=== PATIENT | male | born 1935 | race Caucasian/White ===

== ENCOUNTER 2017-09-01 02:55 | Inpatient (IN) | payer OTHER, BC ==
[~2017-09-01] VITALS: Ht 172.7 cm; Wt 67.7 kg
[2017-09-01 03:33] LABS: BASOPHIL (%) 0.3 % (0-1); EOSINOPHIL (%) 1.7 % (0-5); EOSINOPHIL COUNT 0.2 K/uL (0-0.3); HEMATOCRIT 41.4 % (38.0-50.0); HEMOGLOBIN 14.1 G/DL (12.5-16.6); IMMATURE GRANULOCYTE (%) 0.6 % (0.0-0.7); LYMPHOCYTE (%) 11.4 % (15-42); LYMPHOCYTE COUNT 1.4 K/uL (1.0-2.8); MCH 30.1 PG (29.0-34.0); MCHC 34.1 G/DL (30.0-36.0); MCV 88.3 FL (86-99); MONOCYTE (%) 14.7 % (3-12); MONOCYTE COUNT 1.8 K/uL (0-0.8); NEUTROPHIL (%) 71.3 % (45-76); NEUTROPHIL COUNT 8.6 K/uL (1.8-6.4); PLATELET COUNT 334 K/uL (156-360); RBC DIS.WIDTH-CV 13.4 % (11.8-14.6); RBC DIS.WIDTH-SD 43.6 % (39-53); RED BLOOD COUNT 4.69 M/uL (4.00-5.50); WHITE BLOOD COUNT 12.1 K/uL (4.1-10.2)
[2017-09-01 03:42] LABS: INTER. NORMALIZED RATIO 1.2
[2017-09-01 03:45] LABS: PTT 28.1 SEC (25-37)
[2017-09-01 03:46] LABS: CHLORIDE 104 mEq/L (99-109)
[2017-09-01 03:47] LABS: POTASSIUM 4.4 mEq/L (3.7-5.4); SODIUM 136 mEq/L (136-147)
[2017-09-01 03:48] LABS: GLUCOSE 120 mg/dL (70-99)
[2017-09-01 03:52] LABS: CREATININE 0.9 mg/dL (0.6-1.3); GFR ESTIMATE (CALCULATED) > 59 mL/min/ (58.99-99999)
[2017-09-01 03:53] LABS: UREA NITROGEN (BUN) 17 mg/dL (9-23)
[2017-09-01 03:55] LABS: CREATINE KINASE 51 IU/L (1-294)
[2017-09-01 03:56] LABS: TROP-I INTERPRETATION NEGATIVE; TROPONIN-I < 0.01 ng/mL (0.0-0.30)
[2017-09-01 05:16] LABS: HDL CHOLESTEROL 31 MG/DL (Desirable>=40); LDL CHOLESTEROL 85 mg/dL (Desirable<100); NON-HDL CHOLESTEROL 102 mg/dL (Desirable<160); TOTAL CHOLESTEROL 133 mg/dL (Desirable<200); TRIGLYCERIDES 84 MG/DL (Normal: <150)
[2017-09-01 08:27] VITALS: BP 124/94
[2017-09-01 10:38] LABS: HEMOGLOBIN A1c (GLYCOHEMOGLOB) 6.4 % (Below 5.7)
[2017-09-01] MEDS ORDERED: PRAMIPEXOLE D0.25 MG PO (11:11)
[2017-09-01] MEDS ORDERED: ATARAX,VISTARIL25 MG PO (11:13)
[2017-09-01] MEDS ORDERED: ADVIL200 MG PO (11:18)
[2017-09-01] MEDS ORDERED: OMEGA-3 FLAXS1000 MG PO (11:20)
[2017-09-01] MEDS ORDERED: PROSTATE HEALT1 EAC1 PO (11:22)
[2017-09-01 11:47] VITALS: BP 126/67
[2017-09-01 16:34] VITALS: BP 134/67
[2017-09-01 20:18] VITALS: BP 119/66
[2017-09-02] VITALS (7 sets, daily range): BP systolic 122–168; BP diastolic 62–75
[2017-09-03 03:33] VITALS: BP 146/76
[2017-09-03] MEDS ORDERED: DUONEB 2.5-0.5 M3 ML AEROSOL (07:40)
[2017-09-03] MEDS ORDERED: ASPIRIN EC325 MG PO (07:41)
[2017-09-03] MEDS ORDERED: PREDNISONE10 MG PO (07:42)
[2017-09-03 08:21] VITALS: BP 132/66
[2017-09-03] MEDS ORDERED: LIPITOR40 MG PO (09:07)
[2017-09-03] MEDS ORDERED: OSELTAMIVIR PHO30 MG PO (09:08)
[2017-09-03] MEDS ORDERED: MIRAPEX0.125 MG PO ×2 (14:40→14:41)
[2017-09-03] MEDS ORDERED: HEPARIN SO5000 UNIT4 SC (14:42)
[2017-09-03] MEDS ORDERED: PRAVACHOL40 MG PO (14:42)
[2017-09-03] MEDS ORDERED: TYLENOL REGULA325 MG PO (14:43)
== END 2017-09-03 11:48 | disposition home or self-care (01) | DRG 65 ==
LOC: EME → EDBD 02:55 → EDOF 04:25 → 5SOUTH 04:25 → CANRESERV 04:27 → ENRESERV 04:27 → 4SOUTH 07:17 → ENRESERV 09-02 05:21 → 5SOUTH 09-02 07:01
PROVIDERS: Emergency Medicine; Hospitalist; Physician Assistant
DX: I63.511 Cerebral infarction due to unspecified occlusion or stenosis of right middle cerebral artery (principal); G81.91 Hemiplegia, unspecified affecting right dominant side; J10.1 Influenza due to other identified influenza virus with other respiratory manifestations; J44.9 Chronic obstructive pulmonary disease, unspecified; I10 Essential (primary) hypertension; I65.22 Occlusion and stenosis of left carotid artery; G25.81 Restless legs syndrome; M47.812 Spondylosis without myelopathy or radiculopathy, cervical region; R09.02 Hypoxemia; J98.11 Atelectasis; G89.29 Other chronic pain; R73.03 Prediabetes; Z72.0 Tobacco use; R29.703 NIHSS score 3; W19.XXXA Unspecified fall, initial encounter; Z86.73 Personal history of transient ischemic attack (TIA), and cerebral infarction without residual deficits
CPT/HCPCS: 70450; 70496; 70498; 70551; 71045; 80047; 80048; 80061; 82550; 82948; 83036; 84484; 85025; 85610; 85730; 87502; 93005; 93306; 94640; 94640 76; 94760; 94799; 97530 GO; 99281; 99285; J1644; J2920

== ENCOUNTER 2017-09-03 06:45 | Inpatient (IN) | payer OTHER, BC ==
[~2017-09-03] VITALS: Ht 175.3 cm; Wt 67.9 kg
[~2017-09-03 06:45] MED LIST: ADVIL200 MG PO; ATARAX,VISTARIL25 MG PO; OMEGA-3 FLAXS1000 MG PO; PRAMIPEXOLE D0.25 MG PO; PROSTATE HEALT1 EAC1 PO
[2017-09-03] MEDS ORDERED: DUONEB 2.5-0.5 M3 ML AEROSOL (07:40)
[2017-09-03] MEDS ORDERED: ASPIRIN EC325 MG PO (07:41)
[2017-09-03] MEDS ORDERED: PREDNISONE10 MG PO (07:42)
[2017-09-03] MEDS ORDERED: LIPITOR40 MG PO (09:07)
[2017-09-03] MEDS ORDERED: OSELTAMIVIR PHO30 MG PO (09:08)
[2017-09-03 12:00] VITALS: BP 161/78
[2017-09-03] MEDS ORDERED: MIRAPEX0.125 MG PO ×2 (14:40→14:41)
[2017-09-03] MEDS ORDERED: HEPARIN SO5000 UNIT4 SC (14:42)
[2017-09-03] MEDS ORDERED: PRAVACHOL40 MG PO (14:42)
[2017-09-03] MEDS ORDERED: TYLENOL REGULA325 MG PO (14:43)
[2017-09-03 15:05] VITALS: BP 129/61; BP 131/59
[2017-09-04 00:05] VITALS: BP 133/89
[2017-09-04 06:11] VITALS: BP 132/74
[2017-09-04 08:04] LABS: HEMATOCRIT 42.1 % (38.0-50.0); HEMOGLOBIN 14.1 G/DL (12.5-16.6); MCH 30.1 PG (29.0-34.0); MCHC 33.5 G/DL (30.0-36.0); MCV 89.8 FL (86-99); PLATELET COUNT 341 K/uL (156-360); RBC DIS.WIDTH-CV 13.5 % (11.8-14.6); RBC DIS.WIDTH-SD 44.1 % (39-53); RED BLOOD COUNT 4.69 M/uL (4.00-5.50)
[2017-09-04 08:31] LABS: ALBUMIN 3.2 G/DL (3.2-4.8); ALKALINE PHOSPHATASE 58 IU/L (3-129); ALT (GPT) 24 IU/L (3-49); AST (GOT) 20 IU/L (2-34); CHLORIDE 104 MEQ/L (99-109); CREATININE 0.8 MG/DL (0.6-1.3); GFR ESTIMATE (CALCULATED) > 59 mL/min/ (58.99-99999); GLUCOSE 81 mg/dL (70-99); POTASSIUM 4.6 MEQ/L (3.7-5.4); SODIUM 140 MEQ/L (136-147); TOTAL BILIRUBIN 0.4 MG/DL (0.0-1.0); TOTAL PROTEIN 5.5 G/DL (6.4-8.3); UREA NITROGEN (BUN) 23 mg/dL (9-23)
[2017-09-04 15:09] VITALS: BP 157/67
[2017-09-05 04:57] VITALS: BP 158/76
[2017-09-05 15:18] VITALS: BP 156/88
[2017-09-06 05:50] VITALS: BP 127/62
[2017-09-06 15:00] VITALS: BP 130/62
[2017-09-06 16:29] VITALS: BP 130/62
[2017-09-07 05:27] VITALS: BP 180/82
[2017-09-07 15:00] VITALS: BP 130/80
[2017-09-08 05:31] VITALS: BP 122/58
[2017-09-08 15:23] VITALS: BP 115/72
[2017-09-08] MEDS ORDERED: STIOLTO RESPIMAT4 GM IH (16:42)
[2017-09-08] MEDS ORDERED: LIPITOR40 MG PO (16:42)
[2017-09-08] MEDS ORDERED: PRAMIPEXOLE D0.25 MG PO (16:42)
[2017-09-08] MEDS ORDERED: PREDNISONE20 MG PO (16:42)
[2017-09-08] MEDS ORDERED: ASPIRIN EC325 MG PO (16:42)
[2017-09-08] MEDS ORDERED: HYDROXYZINE PAM25 MG PO (16:42)
[2017-09-09 05:21] VITALS: BP 153/70
== END 2017-09-09 12:33 | DRG 57 ==
LOC: 3WEST 06:45 → ENPENDDIS 09-09 → 3WEST 09-09 12:33
PROVIDERS: Physical Medicine & Rehabilitation Pain Medicine
PROC: F07M0ZZ Range of Motion and Joint Mobility Treatment of Musculoskeletal System - Whole Body (ICD-10-PCS; principal; 2017-09-03)
DX: I69.351 Hemiplegia and hemiparesis following cerebral infarction affecting right dominant side (principal); R26.2 Difficulty in walking, not elsewhere classified; J10.1 Influenza due to other identified influenza virus with other respiratory manifestations; J44.1 Chronic obstructive pulmonary disease with (acute) exacerbation; I10 Essential (primary) hypertension; R13.10 Dysphagia, unspecified; J90 Pleural effusion, not elsewhere classified; D72.829 Elevated white blood cell count, unspecified; T38.0X5A Adverse effect of glucocorticoids and synthetic analogues, initial encounter; G25.81 Restless legs syndrome; M17.11 Unilateral primary osteoarthritis, right knee; H91.90 Unspecified hearing loss, unspecified ear; Z87.891 Personal history of nicotine dependence; Z60.2 Problems related to living alone; Z82.3 Family history of stroke
CPT/HCPCS: 71045; 80053; 85027; 94640; 94640 76; 97110 GO; 97530 GP; 99202; J1644; J7512; Q0177